=== PATIENT | male | born 1960 | race Caucasian/White ===

== ENCOUNTER 2017-09-22 07:29 | Day surgery (SDC) | payer BC ==
[~2017-09-22] VITALS: Ht 165.1 cm; Wt 81.6 kg
[2017-09-22] MEDS ORDERED: NS IRRIG SOLN 1000 ML IR ONE (13:50)
[2017-09-22] MEDS ORDERED: fentaNYL CITRATE/PF 100 MCG/2 ML AMP IVP ONE (13:50)
[2017-09-22] MEDS ORDERED: ROCURONIUM BROMIDE 10 MG/ML (ZEMURON) IV ONE (13:50)
[2017-09-22] MEDS ORDERED: SEVOFLURANE 15 MIN GAS INH ONE (13:50)
[2017-09-22] MEDS ORDERED: MIDAZOLAM HCL 5 MG/5 ML VIAL IVP ONE (13:50)
[2017-09-22] MEDS ORDERED: GLYCOPYRROLATE 0.2 MG/ML VIAL IJ ONE (13:50)
[2017-09-22] MEDS ORDERED: PROPOFOL 200MG/ 20ML VIAL (DIPRIVAN) IV ONE (13:50)
[2017-09-22] MEDS ORDERED: CLINDAMYCIN PHOSPHATE 600 mg/50mL D5W IV ONE (13:50)
[2017-09-22] MEDS ORDERED: LR 1,000 ML IV.SOLN IV ONE (13:50)
[2017-09-22] MEDS ORDERED: METOCLOPRAMIDE HCL 10 MG/2 ML VIAL IVP ONE (13:50)
[2017-09-22] MEDS ORDERED: LR 1,000 ML IV SCH (14:20)
[2017-09-22] MEDS ORDERED: D5/0.45 NS 1,000 ML IV SCH (14:30)
[2017-09-22] MEDS ORDERED: MORPHINE 4 MG/ML INJ. SYRINGE IVP PRN ×3 (14:30)
[2017-09-22] MEDS ORDERED: ONDANSETRON HCL 4 MG/2 ML VIAL IVP PRN (14:30)
[2017-09-22] MEDS ORDERED: HYDROmorphone 1 MG INJ. 1 MG/ML AMPUL IVP PRN (14:30)
[2017-09-22] MEDS ORDERED: HYDROcodone/ACETAMIN 5-325 MG TAB (NORCO/ VICODIN) PO PRN ×2 (14:30)
[2017-09-22 15:25] VITALS: BP_SYST 32
== END 2017-09-22 15:55 | disposition home or self-care (01) ==
LOC: SDS 07:29 → SMU 07:37 → SDS 15:55
PROVIDERS: ATTEND Colon & Rectal Surgery
DX: D17.1 Benign lipomatous neoplasm of skin and subcutaneous tissue of trunk (principal); E78.00 Pure hypercholesterolemia, unspecified; D17.21 Benign lipomatous neoplasm of skin and subcutaneous tissue of right arm; Z98.890 Other specified postprocedural states; Z68.30 Body mass index [BMI] 30.0-30.9, adult; Z79.899 Other long term (current) drug therapy; Z88.0 Allergy status to penicillin
CPT/HCPCS: 21933; 88304; J2250; J2704; J2765; J3010; J3490 ×2; J7120; 88305